=== PATIENT | female | born 2000 | race Asian ===

== ENCOUNTER 2019-11-15 00:38 | Emergency (ER) | payer OTHER ==
[~2019-11-15] VITALS: Ht 162.6 cm; Wt 54.9 kg
[2019-11-15 01:27] VITALS: BP 105/55; TEMP 98.9
== END 2019-11-15 01:27 | disposition home or self-care (01) ==
LOC: ED 00:38
DX: O46.91 Antepartum hemorrhage, unspecified, first trimester (principal); Z3A.01 Less than 8 weeks gestation of pregnancy; Z53.29 Procedure and treatment not carried out because of patient's decision for other reasons
CPT/HCPCS: 99281